=== PATIENT | female | born 2000 | race Caucasian/White ===

== ENCOUNTER 2020-08-03 21:48 | Emergency (ER) | payer OTHER, BC ==
[2020-08-03 21:59] VITALS: BP 130/82; PULSE 87; TEMP 98.1; BMI 24.3
[2020-08-03] MEDS ORDERED: DIPHTH,PERTUSS(ACELL),TET 0.5 ML DISP.SYRIN IM ONE ×4 (22:19→22:26)
[2020-08-03] MEDS ORDERED: BACITRACIN 15 GM TUBE TOPICAL OINTMENT TP ONE (22:23)
== END 2020-08-03 22:55 | disposition home or self-care (01) ==
LOC: JERFT 21:48
PROC: 3E0234Z Introduction of Serum, Toxoid and Vaccine into Muscle, Percutaneous Approach (ICD-10-PCS; principal; 2020-08-03)
DX: S50.811A Abrasion of right forearm, initial encounter (principal)
CPT/HCPCS: 90715; 99285-25